=== PATIENT | female | born 1985 | race Caucasian/White ===

== ENCOUNTER 2018-07-19 06:15 | Emergency (ER) | payer MEDICAID ==
[~2018-07-19] VITALS: Ht 152.4 cm; Wt 65.8 kg
[2018-07-19 06:17] VITALS: BP 130/76
--- NOTE | 2018-07-19 06:19 | NUR ---
PT TAKEN TO BED 7
--- NOTE | 2018-07-19 06:20 | NUR ---
Dr. Mckeon evaluating patient at bedside.
--- NOTE | 2018-07-19 06:21 | NUR ---
33/F PRESENTS TO ED, C/O NONPRODUCTIVE COUGH, CONGESTION, AND PLEURITIC CHEST PAIN, X2 WEEKS. REPORTS "BUMPS IN THROAT." PT DENIES FEVER, N/V. PT AOX4, GCS 15, AMBULATORY, RR EVEN AND UNLABORED. LUNG SOUNDS DIMINISHED BL. REPORTS TAKING DAYQUIL WITH LITTLE RELIEF. DENIES MED HX OR RX.
[2018-07-19] MEDS ORDERED: ALBUTEROL SULFATE/IPRATROPIU 3 ML SOL IH ONE (06:25)
--- NOTE | 2018-07-19 06:32 | NUR ---
Respiratory Therapist at bedside for respiratory intervention.
--- NOTE | 2018-07-19 06:34 | NUR ---
ADMITTING DX: COUGH PATIENT DENIES HX OF ASTHMA/COPD AWAKE AND ALERT VERBALLY RESPONSIVE SITTING POSITION SKIN TONE PINK EDUCATION PROVIDED TO PATIENT ON [facility] THERAPY AND RESPIRATORY DRUG [facility] THERAPY GIVEN ORDERED ENCOURAGED PATIENT FOR INTERMITTENT DEEP BREATHING DURING THERAPY TOLERATED THERAPY WELL WITHOUT INCIDENT
[2018-07-19 06:48] VITALS: BP 130/76
--- NOTE | 2018-07-19 06:48 | NUR ---
Patient discharged with v/s stable. Written and verbal after care instructions given and explained. Patient alert, oriented and verbalized understanding of instructions. Ambulatory with steady gait. All questions addressed prior to discharge. ID band removed. Patient advised to follow up with PMD. Rx of prednisone and promethazine hydrochloride/dextromethorphan given. Patient educated on indication of medication including possible reaction and side effects. Opportunity to ask questions provided and answered.
== END 2018-07-19 06:48 | disposition home or self-care (01) ==
LOC: MED 06:15
DX: J06.9 Acute upper respiratory infection, unspecified (principal)
CPT/HCPCS: 94640; 99283; J7620